=== PATIENT | male | born 2000 | race Caucasian/White ===

== ENCOUNTER 2019-09-23 10:10 | Emergency (ER) | payer OTHER ==
[~2019-09-23] VITALS: Ht 170.2 cm; Wt 78.5 kg
[2019-09-23 10:23] VITALS: Ht 170.2 cm; Wt 78.5 kg
[2019-09-23 11:11] VITALS: BP 124/72
== END 2019-09-23 11:00 | disposition home or self-care (01) ==
LOC: ED 10:10
DX: K59.00 Constipation, unspecified (principal)

== ENCOUNTER 2019-09-30 12:43 | Emergency (ER) | payer OTHER ==
[~2019-09-30] VITALS: Ht 165.1 cm; Wt 77.1 kg
[2019-09-30 12:54] VITALS: Ht 165.1 cm; Wt 77.1 kg
[2019-09-30 14:22] LABS: microscopic required? NO
[2019-09-30 14:36] LABS: UA SPECIFIC GRAVITY 1.015 (1.005-1.035); urine erythrocyte NEGATIVE (NEGATIVE)
[2019-09-30 16:00] VITALS: BP 136/73
== END 2019-09-30 16:00 | disposition home or self-care (01) ==
LOC: ED 12:43
PROVIDERS: Emergency Medicine
DX: N50.811 Right testicular pain (principal)
CPT/HCPCS: 87491; 87591; Q0092

== ENCOUNTER 2020-02-18 14:55 | Emergency (ER) | payer SELFPAY ==
[~2020-02-18] VITALS: Ht 167.6 cm; Wt 77.1 kg
[2020-02-18 15:13] VITALS: Ht 167.6 cm; Wt 77.1 kg
[2020-02-18 16:22] VITALS: BP 141/85
== END 2020-02-18 16:22 | disposition home or self-care (01) ==
LOC: ED 14:55
DX: B34.9 Viral infection, unspecified (principal); Z20.828 Contact with and (suspected) exposure to other viral communicable diseases
CPT/HCPCS: U0003-CS